=== PATIENT | male | born 1940 | race Caucasian/White ===

== ENCOUNTER 2019-05-28 20:47 | Emergency (ER) | payer MEDICARE ==
[~2019-05-28] VITALS: Ht 177.8 cm; Wt 70.3 kg
--- NOTE | 2019-05-28 21:06 | Emergency Room Report ---
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 He presents with flulike illness and weakness. Onset yesterday. He had fever and chills. Had several episodes of vomiting yesterday. One episode of vomiting today. Also slight cough. No abdominal pain. No diarrhea. Because he was warm to the touch, can give him Tylenol. Symptoms did not improve. Patient so weak that he can get out of bed. He is normally uses a cane. Denies any new focal deficit. Vomiting is nonbloody nonbilious. Coughing is none productive. Immunizations up-to-date. No pain. Allergies: Coded Allergies: No Known Allergies (Unverified , 05/28/19) Patient History Past Medical History: see triage record, old chart reviewed Past Surgical History: other Pertinent Family History: none Social History: Denies: smoking Immunizations: other Reviewed Nursing Documentation: PMH: Agreed; PSxH: Agreed Review of Systems Constitutional: Reports: chills, fever, malaise, weakness Eye: Denies: eye pain, blurred vision ENT: Denies: ear pain, nose congestion, throat swelling Respiratory: Reports: cough; Denies: shortness of breath Cardiovascular: Denies: chest pain, palpitations Gastrointestinal: Reports: nausea, vomiting; Denies: abdominal pain, diarrhea Musculoskeletal: Denies: back pain, joint pain Skin: Denies: rash Neurological: Denies: headache, numbness Endocrine: Denies: increased thirst, increased urine Hematologic/Lymphatic: Denies: easy bruising All Other Systems: negative except mentioned in HPI Physical Exam Vital Signs Date Time Temp Pulse Resp B/P (MAP) Pulse Ox O2 Delivery O2 Flow Rate FiO2 05/28/19 20:44 98.2 64 17 109/63 (78) 93 Room Air Vitals unremarkable Sp02 EP Interpretation: reviewed, normal General Appearance: no apparent distress, alert, Chronically Ill Head: normocephalic, atraumatic Eyes: bilateral eye PERRL, bilateral eye EOMI ENT: hearing grossly normal, normal pharynx Neck: full range of motion, supple, no meningismus Respiratory: chest non-tender, lungs clear, normal breath sounds Cardiovascular #1: regular rate, rhythm, no murmur Gastrointestinal: normal bowel sounds, non tender, no mass, no organomegaly, no bruit, non-distended Musculoskeletal: back normal, normal range of motion Neurologic: other - Right facial droop (old). Right arm paraplegia. Right lower extremity weakness, at baseline Psychiatric: mood/affect normal Medical Decision Making Diagnostic Impression: Primary Impression: Episode of generalized weakness Additional Impression: UTI (urinary tract infection) Qualified Codes: N30.00 - Acute cystitis without hematuria ER Course Patient with generalized weakness, cough, and subjective fever. This may be an early viral illness. His symptoms improved greatly after IV fluids here. X- rays negative. He felt better now. Urine is equivocal. May have early infection. I will go ahead and treated. EKG Diagnostic Results Rate: normal Rhythm: NSR ST Segments: no acute changes Rhythm Strip Diag. Results EP Interpretation: yes Rate: 60 Rhythm: NSR, no PVC's, no ectopy Chest X-Ray Diagnostic Results Chest X-Ray Diagnostic Results : Chest X-Ray Ordered: Yes # of Views/Limited/Complete: 1 View Indication: Other - weakness EP Interpretation: Yes Interpretation: no effusion, no pneumothorax, other - mild increased in interstitial markings in RLL Impression: No acute disease Electronically Signed by: Edward Greenberg MD Last Vital Signs Date Time Temp Pulse Resp B/P (MAP) Pulse Ox O2 Delivery O2 Flow Rate FiO2 05/28/19 20:44 98.2 64 17 109/63 (78) 93 Room Air Status: improved Disposition: HOME, SELF-CARE Condition: Stable Scripts Levofloxacin* (LEVAQUIN*) 500 Mg Tablet 500 MG ORAL DAILY, #7 TAB Prov: Edward Greenberg MD 05/29/19 Patient Instructions: Weakness Additional Instructions: Follow-up with your doctor in 7 days. Return if symptoms worsen. Edward Greenberg MD May 28, 2019 21:06
--- NOTE | 2019-05-28 21:15 | NUR ---
ED Nurse Note: Recieved pt from home, here with c/o generalized weakness since 7pm, pt has psych coordinator with him who lives with him also, pt denies cp, sob or any pain, states just weak, no loss of appetite or fever, pt gowned and placed on cardiac monitoring.
[2019-05-28] MEDS ORDERED: KEPPRA500 M4 ORAL (21:22)
--- NOTE | 2019-05-28 21:37 | Diagnostic Imaging Report ---
EXAM: XR Chest, 1 View CLINICAL HISTORY: SOB TECHNIQUE: Frontal view of the chest. COMPARISON: No relevant prior studies available. FINDINGS: Study limited to a single portable AP chest radiograph. Borderline cardiac enlargement. Oligemia mild hyperinflation of the lungs suggesting COPD. Indistinct patchy densities in the medial right lung base likely pneumonia. Follow-up to radiographic resolution recommended.
[2019-05-28 21:58] LABS: HEMATOCRIT 37.6 % (42.0-52.0); HEMOGLOBIN 12.4 G/DL (14.2-18.0); MEAN CORPUSCULAR VOLUME 98 FL (80-99); PLATELET COUNT 144 K/UL (150-450); RED BLOOD COUNT 3.85 M/UL (4.70-6.10)
[2019-05-28 22:05] LABS: ANION GAP 10 mmol/L (5-15); BLOOD UREA NITROGEN 23 mg/dL (7-18); CALCIUM 8.4 MG/DL (8.5-10.1); CARBON DIOXIDE 26 MMOL/L (21-32); CHLORIDE 104 MMOL/L (98-107); CREATININE 1.2 MG/DL (0.55-1.30); POTASSIUM 4.3 MMOL/L (3.5-5.1); SODIUM 140 MMOL/L (136-145)
[2019-05-28 22:20] LABS: ALANINE AMINOTRANSFERASE 73 U/L (12-78); ALBUMIN 3.1 G/DL (3.4-5.0); ALBUMIN/GLOBULIN RATIO 0.9 (1.0-2.7); ALKALINE PHOSPHATASE 67 U/L (46-116); ASPARTATE AMINO TRANSFERASE 73 U/L (15-37); BILIRUBIN,TOTAL 1.3 MG/DL (0.2-1.0)
[2019-05-28 22:21] LABS: BILIRUBIN,DIRECT 0.2 MG/DL (0.0-0.3)
[2019-05-28 22:30] VITALS: BP 114/58
--- NOTE | 2019-05-28 22:35 | NUR ---
ED Nurse Note: Pt resting quietly, no pain or changes, IV fluids given and completed, tolerated well, pt still unable to urinate and give urine, business continuity management director is at bedsdie and assisting also, MD is aware, will continue to monitor while wiating for results and dispo.
[2019-05-28 23:23] LABS: APPEARANCE,URINE CLEAR; BILIRUBIN, URINE NEGATIVE (NEGATIVE); GLUCOSE, URINE (UA) NEGATIVE (NEGATIVE); KETONES,URINE 1+ (NEGATIVE); LEUKOCYTE ESTERASE ,URINE 1+ (NEGATIVE); NITRITE,URINE NEGATIVE (NEGATIVE); PH,URINE 6 (4.5-8.0); PROTEIN,URINE 2+ (NEGATIVE); UROBILINOGEN,URINE 4 MG/DL (0.0-1.0)
[2019-05-28 23:25] LABS: COLOR,URINE YELLOW
[2019-05-28] MEDS ORDERED: cefTRIAXone 1 GM in NS 55 ML IVPB ONE (23:45)
[2019-05-29] MEDS ORDERED: LEVAQUIN500 MG ORAL (00:15)
[2019-05-29 00:40] VITALS: BP 116/67
--- NOTE | 2019-05-29 00:45 | NUR ---
ER DISCHARGE NOTE: Patient is cleared to be discharged per ERMD, pt is aox4, on room air, with stable vital signs. pt was given dc and prescription instructions, pt was able to verbalize understanding, pt id band and iv site removed without complications. pt is able to ambulate with steady gait. pt took all belongings. with rattlesnake farmer to drive him home, nad noted.
== END 2019-05-29 00:55 | disposition home or self-care (01) ==
LOC: EDBD 20:47 → EMR 21:08
DX: R53.1 Weakness (principal); N30.00 Acute cystitis without hematuria; G81.91 Hemiplegia, unspecified affecting right dominant side
CPT/HCPCS: 36415; 71045; 80053; 81003; 82248; 83605; 84484; 85007; 85025; 86710; 87040; 93005; 96361; 96365; 99284; J0696; J7030

== ENCOUNTER 2019-06-07 17:30 | Emergency (ER) | payer MEDICARE ==
[~2019-06-07] VITALS: Ht 172.7 cm; Wt 59.0 kg
[~2019-06-07 17:30] MED LIST: KEPPRA500 M4 ORAL; LEVAQUIN500 MG ORAL
--- NOTE | 2019-06-07 17:50 | NUR ---
ED Nurse Note: Patient walked into ED with cane with his caregiver from home due to abnormal labs- coumadin level was high. Patient on a hospital gown, on a patient monitor.
[2019-06-07 18:43] LABS: ANION GAP 14 mmol/L (5-15); BLOOD UREA NITROGEN 18 mg/dL (7-18); CALCIUM 8.6 MG/DL (8.5-10.1); CARBON DIOXIDE 25 MMOL/L (21-32); CHLORIDE 106 MMOL/L (98-107); CREATININE 1.1 MG/DL (0.55-1.30); POTASSIUM 4.4 MMOL/L (3.5-5.1); SODIUM 145 MMOL/L (136-145)
[2019-06-07 18:48] LABS: ALANINE AMINOTRANSFERASE 33 U/L (12-78); ALBUMIN 3.1 G/DL (3.4-5.0); ALBUMIN/GLOBULIN RATIO 0.9 (1.0-2.7); ALKALINE PHOSPHATASE 74 U/L (46-116); ASPARTATE AMINO TRANSFERASE 26 U/L (15-37); BILIRUBIN,TOTAL 0.6 MG/DL (0.2-1.0)
[2019-06-07 18:49] VITALS: BP 142/74
[2019-06-07 18:54] LABS: BASOPHILS % (AUTO) 0.6 % (0.0-2.0); EOSINOPHILS % (AUTO) 2.4 % (0.0-3.0); HEMATOCRIT 40.2 % (42.0-52.0); HEMOGLOBIN 12.8 G/DL (14.2-18.0); LYMPHOCYTES % (AUTO) 15.7 % (20.0-45.0); MEAN CORPUSCULAR VOLUME 98 FL (80-99); MONOCYTES % (AUTO) 5.4 % (1.0-10.0); NEUTROPHILS % (AUTO) 75.9 % (45.0-75.0); PLATELET COUNT 271 K/UL (150-450); RED BLOOD COUNT 4.12 M/UL (4.70-6.10); RED CELL DISTRIBUTION WIDTH 13.4 % (11.6-14.8); WHITE BLOOD COUNT 6.9 K/UL (4.8-10.8)
--- NOTE | 2019-06-07 19:04 | NUR ---
HAND-OFF: Report given to FREEDOM Couch.
--- NOTE | 2019-06-07 19:10 | NUR ---
ED Nurse Note: ERMD at bedside
--- NOTE | 2019-06-07 19:30 | NUR ---
ED Nurse Note: Pt received all medication, tolerated well, no s/s of distress noted. NO adverse reactions
[2019-06-07 19:47] VITALS: BP 141/67
--- NOTE | 2019-06-07 19:47 | NUR ---
ER DISCHARGE NOTE: Patient is cleared to be discharged home per ERMD, pt is aox4, on room air, with stable vital signs. pt was given dc instructions, pt was able to verbalize understanding, pt id band and iv site removed without complications. pt taken in wheelchair by personal service representative. pt took all belongings.
--- NOTE | 2019-06-07 21:46 | Emergency Room Report ---
History of Present Illness General Chief Complaint: Abnormal Labs Source: Patient Present Illness HPI 78-year-old male presents ED for evaluation of abnormal labs. Patient presents with lunch truck operator from home. States that his Coumadin level was high. Had labs drawn this morning which showed Coumadin level greater than 7. Patient states he feels fine. Denies any bleeding. Denies any chest pain. Denies any pain. Does not recall what he takes Coumadin for. Normally goes to [facility]. No other aggravating relieving factors. Denies any other associated symptoms Allergies: Coded Allergies: No Known Allergies (Unverified , 05/28/19) Patient History Past Medical History: CVA/TIA, seizures Past Surgical History: none Pertinent Family History: none Social History: Denies: smoking, alcohol use, drug use Immunizations: UTD Reviewed Nursing Documentation: PMH: Agreed; PSxH: Agreed Nursing Documentation-PMH Past Medical History: No History, Except For Hx Hypertension: Yes Hx Cerebrovascular Accident: Yes - 2011 Hx Seizures: Yes Review of Systems All Other Systems: negative except mentioned in HPI Physical Exam Vital Signs Date Time Temp Pulse Resp B/P (MAP) Pulse Ox O2 Delivery O2 Flow Rate FiO2 06/07/19 17:48 97.9 47 17 145/75 (98) 94 Room Air Sp02 EP Interpretation: reviewed, normal General Appearance: no apparent distress, alert, GCS 15, non-toxic Head: normocephalic, atraumatic Eyes: bilateral eye normal inspection, bilateral eye PERRL ENT: hearing grossly normal, normal pharynx, no angioedema, normal voice Neck: full range of motion, supple/symm/no masses Respiratory: chest non-tender, lungs clear, normal breath sounds, speaking full sentences Cardiovascular #1: regular rate, rhythm, no edema Cardiovascular #2: 2+ carotid (R), 2+ carotid (L), 2+ radial (R), 2+ radial (L) , 2+ dorsalis pedis (R), 2+ dorsalis pedis (L) Gastrointestinal: normal bowel sounds, non tender, soft, non-distended, no guarding, no rebound Rectal: deferred Genitourinary: normal inspection, no CVA tenderness Musculoskeletal: back normal, normal range of motion, gait/station normal, non- tender Neurologic: alert, motor strength/tone normal, oriented x3, sensory intact, responsive, speech normal Psychiatric: judgement/insight normal, memory normal, mood/affect normal, no suicidal/homicidal ideation Reflexes: 3+ bicep (R), 3+ bicep (L), 3+ tricep (R), 3+ tricep (L), 3+ knee (R) , 3+ knee (L) Skin: no rash Lymphatic: no adenopathy Medical Decision Making Diagnostic Impression: Primary Impression: Supratherapeutic international normalized ratio (INR) ER Course Hospital Course 78-year-old male presents with reportedly high Coumadin level. Asymptomatic Differential diagnoses include: supratherapeutic INR, bradycardia, hyperkalemia Clinical course Patient placed on stretcher. on awake overnight monitor. After initial history and physical I ordered labs, EKG labs reviewed- Electrolytes okay. Hemoglobin/hematocrit normal. INR 5.0 Patient asymptomatic. No bleeding. No hematemesis. No coffee-ground emesis. No blood in stool. Vitals stable. Discussed findings with patient and lunch truck operator. We will withhold 1-2 doses of daily Coumadin. Given vitamin K in ED. Will discharge to home. Discussed with physician on-call for Dr. Kim and they agree with plan. patient states that the last time his INR was high they did the same thing where they withheld medication for 1 to 2 days. I. I feel this is a highly complex case requiring extensive working including EKG/Rhythm strip, Xray/CT/US, Blood/urine lab work, repeat exams while in ED, and administration of strong opiates/narcotics for pain control, admission to hospital or close patient follow up. Diagnosis - supratherpaeutic INR Discharged to longterm in stable condition. Hold Coumadin for 1 to 2 days. Followup with PMD. Return to ED if symptoms recur or worsen Labs Test 06/07/19 18:05 White Blood Count 6.9 K/UL (4.8-10.8) Red Blood Count 4.12 M/UL (4.70-6.10) Hemoglobin 12.8 G/DL (14.2-18.0) Hematocrit 40.2 % (42.0-52.0) Mean Corpuscular Volume 98 FL (80-99) Mean Corpuscular Hemoglobin 31.1 PG (27.0-31.0) Mean Corpuscular Hemoglobin Concent 31.8 G/DL (32.0-36.0) Red Cell Distribution Width 13.4 % (11.6-14.8) Platelet Count 271 K/UL (150-450) Mean Platelet Volume 7.4 FL (6.5-10.1) Neutrophils (%) (Auto) 75.9 % (45.0-75.0) Lymphocytes (%) (Auto) 15.7 % (20.0-45.0) Monocytes (%) (Auto) 5.4 % (1.0-10.0) Eosinophils (%) (Auto) 2.4 % (0.0-3.0) Basophils (%) (Auto) 0.6 % (0.0-2.0) Prothrombin Time 48.9 SEC (9.30-11.50) Prothromb Time International Ratio 5.0 (0.9-1.1) Activated Partial Thromboplast Time 45 SEC (23-33) Sodium Level 145 MMOL/L (136-145) Potassium Level 4.4 MMOL/L (3.5-5.1) Chloride Level 106 MMOL/L (98-107) Carbon Dioxide Level 25 MMOL/L (21-32) Anion Gap 14 mmol/L (5-15) Blood Urea Nitrogen 18 mg/dL (7-18) Creatinine 1.1 MG/DL (0.55-1.30) Estimat Glomerular Filtration Rate > 60 mL/min (>60) Glucose Level 101 MG/DL (74-106) Calcium Level 8.6 MG/DL (8.5-10.1) Total Bilirubin 0.6 MG/DL (0.2-1.0) Aspartate Amino Transf (AST/SGOT) 26 U/L (15-37) Alanine Aminotransferase (ALT/SGPT) 33 U/L (12-78) Alkaline Phosphatase 74 U/L (46-116) Total Protein 6.7 G/DL (6.4-8.2) Albumin 3.1 G/DL (3.4-5.0) Globulin 3.6 g/dL Albumin/Globulin Ratio 0.9 (1.0-2.7) EKG Diagnostic Results Rate: normal Rhythm: NSR ST Segments: no acute changes ASA given to the pt in ED: No Rhythm Strip Diag. Results EP Interpretation: yes Rhythm: NSR, no PVC's, no ectopy Last Vital Signs Date Time Temp Pulse Resp B/P (MAP) Pulse Ox O2 Delivery O2 Flow Rate FiO2 06/07/19 19:47 97.9 56 17 141/67 96 Room Air Status: improved Disposition: HOME, SELF-CARE Condition: Stable Referrals: NON PHYSICIAN (PCP) Patient Instructions: Warfarin Coagulopathy Additional Instructions: skip 1-2 doses of your daily coumadin. followup with your PMD Massimo Ramirez MD Jun 07, 2019 21:46
== END 2019-06-07 19:47 | disposition home or self-care (01) ==
LOC: EMR 19:47
DX: R79.89 Other specified abnormal findings of blood chemistry (principal); R79.1 Abnormal coagulation profile; G40.909 Epilepsy, unspecified, not intractable, without status epilepticus; I10 Essential (primary) hypertension
CPT/HCPCS: 36415; 80053; 85025; 85610; 85730; 93005; 96374; 99284; J3430